=== PATIENT | male | born 1940 | race Caucasian/White ===

== ENCOUNTER → 2021-03-11 05:00 | Outpatient (REF) | payer OTHER, SELFPAY ==
[2021-03-11 09:43] LABS: Hemoglobin 14.9 g/dL (13.0-16.5); Mean Corp Hgb Conc 33.9 g/dL (32-36); Mean Corpuscular Hgb 30.2 pg (27.0-32.0); Mean Corpuscular Volume 89.1 fL (80-94); Mean Platelet Vol. 10.5 fl (6.2-12.0); Platelet Count 168 K/mm3 (150-450); RBC Distribution Width CV 13.2 % (11.6-14.6); Red Blood Count 4.94 M/mm3 (4.6-6.2); White Blood Count 9.1 K/mm3 (4.4-11.0)
[2021-03-11 10:03] LABS: ALB/GLOB Ratio 1.1 RATIO (0.9-2.4); AST(SGOT) 27 U/L (15-37); Alanine Aminotransfer ALT/SGPT 36 U/L (16-61); Albumin, Serum 3.5 g/dL (3.2-5.0); Alkaline Phosphatase 100 U/L (45-117); Anion Gap 9 (5-15); BUN 16 mg/dL (7-18); BUN/Creat Ratio 15.7 RATIO (10-20); Calcium,Total 8.8 mg/dL (8.5-10.1); Chloride 105 mmol/L (98-107); Cholesterol 153 mg/dL (200); Creatinine, Serum 1.02 mg/dL (0.70-1.30); EST Glomerular Filtration Rate 75 mL/min (>60); Est Glom Filt Rate - Afr Amer 91 mL/min (>60); Globulin 3.3 g/dL (2.2-4.2); Glucose 95 mg/dL (74-106); High Density Lipoprotein 56 mg/dL; Potassium 4.3 mmol/L (3.5-5.1); Protein, Total 6.8 g/dL (6.4-8.2); Sodium Level 140 mmol/L (136-145); Triglycerides 90 mg/dL; Very Low Density Lipoprotein 18 mg/dL (5-40)
== END ==
LOC: OLS.BROOKB 05:00
PROVIDERS: Visit Provider Family Medicine
DX: I10 Essential (primary) hypertension (principal); E78.5 Hyperlipidemia, unspecified
CPT/HCPCS: 36415; 80053; 80061; 85027

== ENCOUNTER 2021-04-21 10:00 | Outpatient (REF) | payer MEDICARE, SELFPAY ==
[2021-04-21 12:58] LABS: Bacteria 0 SEEN /hpf (None Seen); Mucous, Urine 0 SEEN /hpf (<or=2+); Red Blood Cells-Urine 0 SEEN /hpf (0-5); White Blood Cells 0 SEEN /hpf (0-5)
[2021-04-21 13:12] LABS: Color, Urine Yellow (Yellow); Glucose, Dipstick Normal (Normal); Ketone-Dipstick Negative (Negative); Leukocyte Esterase-Dipstick Negative /ul (Negative); Nitrite-Dipstick Negative (Negative); Occult Blood-Urine Negative /ul (Negative); Protein-Dipstick Negative (Negative); Specific Gravity, Urine 1.015 (1.002-1.030); Urine Bilirubin Dipstick Negative (Negative); Urine Clarity Clear (Clear); Urine Urobilinogen Normal (Normal)
[2021-04-21 13:17] LABS: Squamous Epithelial Cells - UA 0-5 SEEN /hpf (0-5)
== END 2021-04-21 23:59 | disposition home or self-care (01) ==
LOC: OLS.BROOKB 10:00
PROVIDERS: Visit Provider Registered Nurse
DX: N39.0 Urinary tract infection, site not specified (principal); R41.0 Disorientation, unspecified
CPT/HCPCS: 81001; 87086

== ENCOUNTER 2021-10-14 13:46 | Inpatient (IN) | payer MEDICARE, SELFPAY ==
[2021-10-14] VITALS (7 sets, daily range): BP systolic 124–137; BP diastolic 79–100; PULSE 68–90; RESP 14–20; TEMP 36.6–37.5; O2SAT 93–98; BMI 18.1; BMI 17.8
--- NOTE | 2021-10-14 14:21 | RAD_ITS ---
STUDY: X-RAY CHEST REASON FOR EXAM: Male, 81 years old. sob TECHNIQUE: Single AP portable view of the chest. COMPARISON: None. FINDINGS: The lungs are hyperinflated with cystic emphysematous changes. No visualized consolidation. The lungs are clear and expanded. There is no demonstrated pleural abnormality. Normal size heart. Normal mediastinum and keron. Normal visualized pulmonary arteries. There is atherosclerotic calcification of the aortic arch with tortuosity. There are diffuse degenerative changes of the visualized thoracic spine. Normal visualized ribs, clavicles, and shoulders. There is no demonstrated abnormality of the visualized soft tissue structures of the upper abdomen. RAD/Chest 1 View (Portable) IMPRESSION: COPD/emphysema Electronically Signed: Fortunato Deng MD at 15:11 EDT ,
--- NOTE | 2021-10-14 14:22 | EKG12_ITS ---
Test Reason : Alt loc Blood Pressure : / mmHG Vent. Rate : 081 BPM Atrial Rate : 081 BPM P-R Int : 134 ms QRS Dur : 090 ms QT Int : 406 ms P-R-T Axes : 061 076 057 degrees QTc Int : 471 ms Sinus rhythm with occasional Premature ventricular complexes Nonspecific ST abnormality Abnormal ECG Confirmed by IDALIA SHINE, TATYANA ([id number]), senior editor ANGEL CORTES ([id number]) on 10/17/2021 9:38:30 AM Referred By: Jackelin Confirmed By:TATYANA FRIEDMAN MD
--- NOTE | 2021-10-14 14:24 | EDS_ITS ---
HPI History of Present Illness Chief Complaint: Alt LOC Informant: spouse/S.O., EMS and SNF Narrative Narrative: Patient sent in from [facility] secondary to decreased level of consciousness as well as facial swelling. Per at bedside she received a phone call from the long term that this morning he woke up with swelling to his lips right greater than left and not wanting to eat and drink. They state that he was less responsive than normal. He does have baseline dementia. EMS told nursing staff that they were told he had not been eating and drinking well the last couple days. There was no reported fall or injury. No new medications as far as knows. [facility] Medical History (Updated 10/14/21 @ 15:[address] Pauline Benítez MD) Coronary artery disease Dementia High cholesterol Hypertension Irritable bowel syndrome Allergy/AdvReac Type Severity Reaction Status Date / Time bee venom protein (honey bee) Allergy NEEDS Verified 10/14/21 13:47 FOLLOW-UP morphine Allergy NEEDS Verified 10/14/21 13:47 FOLLOW-UP Social History Smoking Status: Never smoker ROS ROS ED Review of Systems ROS Unobtainable: due to mental condition EXAM Physical Exam Narrative Exam Narrative: Patient resting with eyes closed. Will moan to questions. Will follow simple commands such as opening his mouth for further exam. Const Vital Signs: 10/14/21 13:48 10/14/21 14:37 10/14/21 14:58 Temperature 98.1 F 97.8 F Temperature Source Temporal Axillary Pulse Rate 90 87 Respiratory Rate 14 19 H Respiratory Effort Normal Non-Labored Respiratory Pattern Normal Blood Pressure 128/100 H 124/86 H Blood Pressure Mean 109 98 Pulse Ox 98 96 Oxygen Delivery Method Room Air Room Air Positive cachectic General Appearance ED: cachectic Nutritional Appearance: cachectic HEENT Reports dry mucous membranes HEENT Narrative: Edema noted right side greater than left. No tongue edema appreciated. Mucous membranes are quite dry. Patient would not allow for a very detailed oral exam. Nursing staff did note a sore on the inner surface of his right lower lip. Mouth ED: Yes dry mucous membranes Mouth: dry mucous membranes Neck no lymphadenopathy Chest Wall inspection of chest normal and palpation of chest normal Resp normal respiratory effort and clear to auscultation bilaterally Cardio regular rate and regular rhythm GI non-tender Auscultation: hypoactive bowel sounds Palpation: soft Extremity normal to inspection Neuro Neuro Narrative: Will moan to questions and follow some simple commands. Skin Skin Narrative: Superficial abrasion to the left liao. MDM MDM MDM Narrative Medical decision making narrative: Patient sent for CT scan of the head and facial bones. Chest x-ray obtained. Lab work and urinalysis ordered. Lab Data Attestation: I reviewed the patient's lab results. Labs: Laboratory Results - last 24 hr 10/14/21 10/14/21 10/14/21 14:08 14:08 15:18 WBC 13.5 H RBC 5.57 Hgb 16.0 Hct 50.2 MCV 90.1 MCH 28.7 MCHC 31.9 L RDW Std Deviation 46.8 H RDW Coeff of Jeet 14.2 Plt Count 214 MPV 10.9 Immature Gran % (Auto) 0.500 Neut % (Auto) 75.3 H Lymph % (Auto) 13.8 L [place] % (Auto) 9.2 Eos % (Auto) 0.8 Baso % (Auto) 0.4 Absolute Neuts (auto) 10.1 H Absolute Lymphs (auto) 1.85 Nucleated RBC % 0 Sodium 158 H Potassium 3.7 Chloride 125 H Carbon Dioxide 27.0 Anion Gap 6 BUN 37 H Creatinine 1.16 Estim Creat Clear Calc 40.01 Est GFR (MDRD) Af Amer 78 Est GFR (MDRD) Non-Af 64 BUN/Creatinine Ratio 31.9 H Glucose 103 Calcium 9.3 Total Bilirubin 0.70 Direct Bilirubin 0.15 AST 46 H ALT 29 Alkaline Phosphatase 157 H Total Protein 7.6 Albumin 3.7 Globulin 3.9 Urine Color Yellow Urine Clarity Cloudy Urine pH 6.0 Ur Specific [place] 1.025 Urine Protein 30 H Urine Glucose (UA) Normal Urine Ketones 5 H Urine Occult Blood 25 H Urine Nitrite Negative Urine Bilirubin Negative Urine Urobilinogen Normal Ur Leukocyte Esterase 500 H Radiography Diagnostic Testing: Clinical Impression(s) from Imaging Studies Chest X-Ray 10/14/21 14:21 IMPRESSION: COPD/emphysema Electronically Signed: Fortunato Deng MD at 15:11 EDT , Brain CT 10/14/21 14:42 IMPRESSION: Chronic involutional changes of the brain. Electronically Signed: Jose Becerril MD at 15:07 EDT , Facial/Sinus 10/14/21 14:42 IMPRESSION: Diffuse soft tissue swelling overlying the mandible more prominent on the right side. Electronically Signed: Jose Becerril MD at 15:09 EDT , EKG Initial EKG: Attestation: I personally reviewed and interpreted this EKG as follows: Interpretation: Sinus Rhythm (Sinus at 81 with no acute ischemia. Occasional PVCs.) Treatment and Re-Evaluation Narrative: Lab work is reviewed. White count slightly elevated at 13.5. Chemistry studies significant for a sodium of 158 and a chloride of 125. Bicarb is 27. BUN is 37 and creatinine is 1.16. Urinalysis does reveal 500 leukocyte esterase. Only 5 ketones noted. Chest x-ray per my interpretation reveals no acute findings. Radiology interpretation is reviewed. Head CT is normal. CT of the facial bones reveal soft tissue swelling overlying the mandible on the right. No focal abscess noted. On repeat evaluation patient is more agitated after moving to radiology and back. We attempted multiple times to reassure him. He remains agitated and will receive a small dose of Ativan. Test results discussed with at bedside. Given the fact that nursing staff did note a wound on the inner surface of his lip and he has edema along his right mandible we will give him a dose of clindamycin. He was given a 500 cc IV fluid bolus at this time and is currently running at 150. I will discuss with hospitalist. Discharge Plan Triage Chief Complaint: Alt LOC ED Provider: Pauline Benítez Dx/Rx/DC Orders Clinical Impression: Hypernatremia, Infection of mouth Primary Care Provider: Jassi Rodriguez Referrals: Jassi Rodriguez MD [Primary Care Provider] -
[2021-10-14 14:34] LABS: Absolute Lymphocyte Count 1.85 X10^3/uL (0.83-4.51); Absolute Neutrophil Count 10.1 X10^3/uL (2.0-7.7); Basophil# 0.05 X10^3/uL; Basophil% 0.4 % (0-1); Eosinophil# 0.11 X10^3/uL; Eosinophils% 0.8 % (0-5); Hematocrit 50.2 % (40-54); Lymphocyte # 1.85 X10^3/ul (0.83-4.51); Lymphocyte % 13.8 % (19-41); Mean Corp Hgb Conc 31.9 g/dL (32-36); Mean Corpuscular Hgb 28.7 pg (27.0-32.0); Mean Corpuscular Volume 90.1 fL (80-94); Mean Platelet Vol. 10.9 fl (6.2-12.0); Monocyte# 1.24 X10^3/uL; Monocyte% 9.2 % (0-10); NRBC Flagged by Analyzer 0 % (0-5); Neutrophil # 10.13 X10^3/uL (2.7-7.7); Neutrophil % 75.3 % (47-70); Platelet Count 214 K/mm3 (150-450); RBC Distribution Width CV 14.2 % (11.6-14.6); RBC Distribution Width SD 46.8 fl (35.1-43.9); Red Blood Count 5.57 M/mm3 (4.6-6.2); White Blood Count 13.5 K/mm3 (4.4-11.0)
--- NOTE | 2021-10-14 14:42 | CT_ITS ---
STUDY: CT FACIAL BONES WITHOUT CONTRAST REASON FOR EXAM: Male, 81 years old. Facial swelling -- please include through mandible RADIATION DOSAGE (If Supplied By Facility): CTDIvol = ( 29.38 ) mGy, DLP = ( 613.57 ) mGycm TECHNIQUE: The patient was scanned in a multi detector CT scanner. Sagittal and coronal images were reconstructed. Individualized dose optimization techniques were used for this CT. COMPARISON: None. FINDINGS: Diffuse soft tissue swelling overlying the mandible more prominent on the right side. No mandibular fracture is seen. Normal orbital rivas and orbital contents. Normal nasal bones and anterior nasal spine. Normal facial bones. There is no demonstrated fracture. Normal visualized paranasal sinuses. CT/Sinus/Facial Bone IMPRESSION: Diffuse soft tissue swelling overlying the mandible more prominent on the right side. Electronically Signed: Jose Becerril MD at 15:09 EDT ,
--- NOTE | 2021-10-14 14:42 | CT_ITS ---
STUDY: CT BRAIN WITHOUT CONTRAST REASON FOR EXAM: Male, 81 years old. Altered LOC RADIATION DOSAGE (If Supplied By Facility): CTDIvol = ( 44.99 ) mGy, DLP = ( 863.60 ) mGycm TECHNIQUE: Transaxial CT imaging of the brain was performed without administration of intravenous contrast material. Individualized dose optimization techniques were used for this CT. COMPARISON: No relevant priors. FINDINGS: Normal soft tissue structures. Normal calvarium. There is moderate cerebral atrophy with widening of the extra-axial spaces and ventricular dilatation. There are areas of decreased attenuation within the white matter tracts of the supratentorial brain, consistent with microvascular disease changes. Normal basal ganglia and thalami. Normal brainstem. There is mild cerebellar atrophy. There is no intracranial hemorrhage. There are no findings of an acute ischemic infarction. Atherosclerotic calcification of the cavernous portions of the internal carotid arteries and bilateral vertebral arteries. Normal visualized paranasal sinuses. CT/Brain/Head without Contrast IMPRESSION: Chronic involutional changes of the brain. Electronically Signed: Jose Becerril MD at 15:07 EDT ,
[2021-10-14 14:50] LABS: AST(SGOT) 46 U/L (15-37); Alanine Aminotransfer ALT/SGPT 29 U/L (16-61); Albumin, Serum 3.7 g/dL (3.2-5.0); Alkaline Phosphatase 157 U/L (45-117); Anion Gap 6 (5-15); BUN 37 mg/dL (7-18); BUN/Creat Ratio 31.9 RATIO (10-20); Bilirubin, Direct 0.15 mg/dL (0.00-0.30); Calcium,Total 9.3 mg/dL (8.5-10.1); Chloride 125 mmol/L (98-107); Creatinine, Serum 1.16 mg/dL (0.70-1.30); EST Glomerular Filtration Rate 64 mL/min (>60); Est Glom Filt Rate - Afr Amer 78 mL/min (>60); Estimated Creatinine Clearance 40.01 ml/min; Globulin 3.9 g/dL (2.2-4.2); Glucose 103 mg/dL (74-106); Potassium 3.7 mmol/L (3.5-5.1); Protein, Total 7.6 g/dL (6.4-8.2); Sodium Level 158 mmol/L (136-145)
[2021-10-14] MEDS: 0.9% Normal Saline 1,000 ML 150 ML IV (15:17)
[2021-10-14 15:26] LABS: Mucous, Urine 0 SEEN /hpf (<or=2+)
[2021-10-14 15:32] LABS: Color, Urine Yellow (Yellow); Glucose, Dipstick Normal (Normal); Ketone-Dipstick 5 mg/dl (Negative); Leukocyte Esterase-Dipstick 500 /ul (Negative); Nitrite-Dipstick Negative (Negative); Occult Blood-Urine 25 /ul (Negative); Protein-Dipstick 30 mg/dl (Negative); Specific Gravity, Urine 1.025 (1.002-1.030); Urine Bilirubin Dipstick Negative (Negative); Urine Clarity Cloudy (Clear); Urine Urobilinogen Normal (Normal)
[2021-10-14 15:50] LABS: Bacteria 1+ /hpf (None Seen); Red Blood Cells-Urine 5-10 SEEN /hpf (0-5); Squamous Epithelial Cells - UA 0-5 SEEN /hpf (0-5); White Blood Cells >100 SEEN /hpf (0-5)
[2021-10-14] MEDS: LORazepam 2 MG/ML Syringe 0.5 MG IV (15:52)
--- NOTE | 2021-10-14 15:54 | NURSING ---
DR CONSTANTINO FOR DR JOSUE
--- NOTE | 2021-10-14 16:02 | HP.PCM.HOS_ITS ---
HPI - General General Date of Admission: 10/14/21 Date of Service: 10/14/21 Chief Complaint: Confusion, poor p.o. intake -over the last couple of days HPI Narrative AMAYA DANIEL, is a 81 M who presents with the above. Patient has history of dementia and is resident in a detention. He comes in with progressive confusion and poor p.o. intake. Patient was noted in the detention to have a right sided facial swelling. He has not eating well over the last 2 weeks. He seems to have a right lip and jaw swelling. Patient is a poor historian and I am unable to get any history from him. His is at the bedside. She is unable to give me up to date events. Blood pressure is 128/100, heart rate 90, respiratory 14, temperature 98.1 F, SPO2 is 98% on room air. WBC count is 13.5hemoglobin is 16.0, platelet count 214, sodium is 158, potassium 3.7, chloride 125, BUN 37, creatinine 1.16, LFTs unremarkable. UA is cloudy, leukocyte esterase 500, WBC count >100 Admitting chest x-ray shows COPD/emphysema. CT scan brain showed chronic involuntary changes. Facial/sinus CT showed diffuse soft tissue swelling overlying the mandible more prominent on the right side. [facility] Medical History Coronary artery disease Dementia High cholesterol Hypertension Irritable bowel syndrome Home Medications aspirin 81 mg tablet,delayed release 81 mg PO DAILY@0800 10/14/21 [History Last Taken Unknown] diltiazem HCl 180 mg capsule,extended release 24 hr 180 mg PO DAILY CAD 10/14/21 [History Last Taken Unknown] docusate sodium 100 mg capsule (Colace) 200 mg PO BID CONSTIPATION 10/14/21 [History Last Taken Unknown] magnesium oxide 800 mg PO DAILY 10/14/21 [History Last Taken Unknown] mirtazapine 15 mg tablet 15 mg PO QHS APPETITE 10/14/21 [History Last Taken Unknown] multivitamin with minerals 1 tab PO DAILY SUPPLEMENT 10/14/21 [History Last Taken Unknown] ranolazine 500 mg tablet,extended release,12 hr 500 mg PO BID ANGINA 10/14/21 [History Last Taken Unknown] sertraline 100 mg tablet 100 mg PO DAILY DEPRESSION 10/14/21 [History Last Taken Unknown] Allergy/AdvReac Type Severity Reaction Status Date / Time bee venom protein (honey bee) Allergy Laryngospas Verified 10/14/21 17:19 ms morphine Allergy Other Verified 10/14/21 17:19 Family History unable to obtain unable to obtain Surgical History unable to obtain unable to obtain Social History (Updated 10/14/21 @ 16:[address] Keri Hull MD) housing: detention Smoking Status: Never smoker substance use type: does not use Vital Signs Vital Signs Vital Signs: 10/14/21 13:48 10/14/21 14:37 10/14/21 14:58 Temperature 98.1 F 97.8 F Temperature Source Temporal Axillary Pulse Rate 90 87 Respiratory Rate 14 19 H Respiratory Effort Normal Non-Labored Respiratory Pattern Normal Blood Pressure 128/100 H 124/86 H Blood Pressure Mean 109 98 Pulse Ox 98 96 Oxygen Delivery Method Room Air Room Air 10/14/21 15:52 Temperature Temperature Source Pulse Rate 89 Respiratory Rate 18 Respiratory Effort Respiratory Pattern Blood Pressure 130/86 H Blood Pressure Mean 100 Pulse Ox 98 Oxygen Delivery Method Room Air Weight Weight: 55.7 kg Body Mass Index (BMI) 18.1 Physical Exam Narrative Physical exam: General: Alert, confused, slightly combative, not pale, appears very frail, cachectic HEENT: Atraumatic Oral: Dry Mucosa, severe dental caries, unable to fully examine oral exam Neck: Supple Lungs: Diminished to auscultation Cardiovascular: HS I+II, regular, no murmurs Abdomen: Bowel Sounds Present, Soft, Non Tender Extremities: No edema Skin: No rashes, No breakdown Neurological: Grossly intact Psych/Mental Status: Appropriate Results Lab / Micro Data Result Diagrams: 10/14/21 14:08 10/14/21 14:08 Labs: Laboratory Results - last 24 hr 10/14/21 14:08: WBC 13.5 H, RBC 5.57, Hgb 16.0, Hct 50.2, MCV 90.1, MCH 28.7, MCHC 31.9 L, RDW Std Deviation 46.8 H, RDW Coeff of Jeet 14.2, Plt Count 214, MPV 10.9, Immature Gran % (Auto) 0.500, Neut % (Auto) 75.3 H, Lymph % (Auto) 13.8 L, [place] % (Auto) 9.2, Eos % (Auto) 0.8, Baso % (Auto) 0.4, Absolute Neuts (auto) 10.1 H, Absolute Lymphs (auto) 1.85, Nucleated RBC % 0 10/14/21 14:08: Sodium 158 H, Potassium 3.7, Chloride 125 H, Carbon Dioxide 27.0, Anion Gap 6, BUN 37 H, Creatinine 1.16, Estim Creat Clear Calc 40.01, Est GFR (MDRD) Af Amer 78, Est GFR (MDRD) Non-Af 64, BUN/Creatinine Ratio 31.9 H, Glucose 103, Calcium 9.3, Total Bilirubin 0.70, Direct Bilirubin 0.15, AST 46 H, ALT 29, Alkaline Phosphatase 157 H, Total Protein 7.6, Albumin 3.7, Globulin 3.9 10/14/21 15:18: Urine Color Yellow, Urine Clarity Cloudy, Urine pH 6.0, Ur Specific [place] 1.025, Urine Protein 30 H, Urine Glucose (UA) Normal, Urine Ketones 5 H, Urine Occult Blood 25 H, Urine Nitrite Negative, Urine Bilirubin Negative, Urine Urobilinogen Normal, Ur Leukocyte Esterase 500 H, Urine RBC 5-10 SEEN, Urine WBC >100 SEEN, Ur Squamous Epith Cells 0-5 SEEN, Urine Bacteria 1+, Urine Mucus 0 SEEN Radiology Impression Chest X-Ray 10/14/21 14:21 IMPRESSION: COPD/emphysema Electronically Signed: Fortunato Deng MD at 15:11 EDT Reading Location ID and State: [facility] / [place] , Service support , Brain CT 10/14/21 14:42 IMPRESSION: Chronic involutional changes of the brain. Electronically Signed: Jose Becerril MD at 15:07 EDT Reading Location ID and State: [facility] / [place] , Service support , Facial/Sinus 10/14/21 14:42 IMPRESSION: Diffuse soft tissue swelling overlying the mandible more prominent on the right side. Electronically Signed: Jose Becerril MD at 15:09 EDT , Assessment & Plan Assessment/Plan (1) Hypernatremia: PLAN: Plan 1. Acute hyperactive delirium in a patient with dementia likely secondary to hypernatremia/poor p.o. intake Will put on Haldol as needed, continue treatment as below EKG in a.m. 2. Acute hypernatremia secondary dehydration, Na 158 Will start on d5W, repeat BMP q4h 3. Acute right mandibular swelling/probable infection/probable ulceration Unable to do a full exam CT scan showed diffuse soft tissue swelling overlying the mandible Started on IV clindamycin x1; continue with IV Unasyn 4. Severe protein calorie malnutrition, BMI 17.8, audio video technician consulted Will look out for refeeding syndrome as patient is started on supplements and food 5. Dementia with behavioral disturbances, 6. Hypertension/CAD, continue on Cardizem, Ranexa, aspirin 7. DVT prophylaxis? Lovenox SC daily 8. I discussed and explained in details the various types of CODE STATUS-full code, DNR CCA, DNR CC. Patient's chose DNR-CC Time spent discussing CODE STATUS 16 minutes Charges/Coding Visit Charges Inpatient E&M: 06796 Init Hosp L3 Procedures Hospitalists Procedures: 86281 Advncd Care Plan 30 Min
[2021-10-14] MEDS: Clindamycin 600 MG/50 ML BAG 100 MG IV (16:07)
--- NOTE | 2021-10-14 16:23 | NURSING ---
303 NUAMAH HYPERNATREMIA, LIP SWELLING
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
[2021-10-14] MEDS: Haloperidol Lactate 5 MG/ML Vial 2 MG IM (17:36)
[2021-10-14 18:34] LABS: Anion Gap 6 (5-15); BUN 34 mg/dL (7-18); BUN/Creat Ratio 31.5 RATIO (10-20); Chloride 129 mmol/L (98-107); Creatinine, Serum 1.08 mg/dL (0.70-1.30); EST Glomerular Filtration Rate 70 mL/min (>60); Est Glom Filt Rate - Afr Amer 85 mL/min (>60); Estimated Creatinine Clearance 42.17 ml/min; Glucose 104 mg/dL (74-106); Potassium 3.4 mmol/L (3.5-5.1); Sodium Level 160 mmol/L (136-145)
[2021-10-14] MEDS: Haloperidol Lactate 5 MG/ML Vial 4 MG IM (21:25)
[2021-10-14 21:48] LABS: Anion Gap 7 (5-15); BUN 33 mg/dL (7-18); BUN/Creat Ratio 26.6 RATIO (10-20); Calcium,Total 8.8 mg/dL (8.5-10.1); Chloride 127 mmol/L (98-107); Creatinine, Serum 1.24 mg/dL (0.70-1.30); EST Glomerular Filtration Rate 60 mL/min (>60); Est Glom Filt Rate - Afr Amer 72 mL/min (>60); Estimated Creatinine Clearance 36.73 ml/min; Glucose 129 mg/dL (74-106); Potassium 3.6 mmol/L (3.5-5.1); Sodium Level 159 mmol/L (136-145)
[2021-10-15 04:08] VITALS: BP 113/92; PULSE 67; RESP 18; TEMP 36.6; O2SAT 98
[2021-10-15] MEDS: Haloperidol Lactate 5 MG/ML Vial 2 MG IM ×5 (04:19→21:25)
[2021-10-15] MEDS: Enoxaparin 30 MG/0.3 ML Syringe SC (04:22)
[2021-10-15 07:28] LABS: Absolute Lymphocyte Count 1.98 X10^3/uL (0.83-4.51); Absolute Neutrophil Count 7.2 X10^3/uL (2.0-7.7); Basophil# 0.05 X10^3/uL; Basophil% 0.5 % (0-1); Eosinophil# 0.46 X10^3/uL; Eosinophils% 4.3 % (0-5); Hematocrit 43.3 % (40-54); Hemoglobin 13.8 g/dL (13.0-16.5); Lymphocyte # 1.98 X10^3/ul (0.83-4.51); Lymphocyte % 18.3 % (19-41); Mean Corp Hgb Conc 31.9 g/dL (32-36); Mean Corpuscular Hgb 28.6 pg (27.0-32.0); Mean Corpuscular Volume 89.8 fL (80-94); Monocyte# 1.09 X10^3/uL; Monocyte% 10.1 % (0-10); NRBC Flagged by Analyzer 0 % (0-5); Neutrophil # 7.18 X10^3/uL (2.7-7.7); Neutrophil % 66.4 % (47-70); Platelet Count 157 K/mm3 (150-450); RBC Distribution Width CV 14.1 % (11.6-14.6); RBC Distribution Width SD 46.2 fl (35.1-43.9); Red Blood Count 4.82 M/mm3 (4.6-6.2); White Blood Count 10.8 K/mm3 (4.4-11.0)
[2021-10-15 08:19] LABS: ALB/GLOB Ratio 0.9 RATIO (0.9-2.4); AST(SGOT) 58 U/L (15-37); Alanine Aminotransfer ALT/SGPT 28 U/L (16-61); Albumin, Serum 2.9 g/dL (3.2-5.0); Alkaline Phosphatase 128 U/L (45-117); Anion Gap 6 (5-15); BUN 30 mg/dL (7-18); BUN/Creat Ratio 33.1 RATIO (10-20); Calcium,Total 8.6 mg/dL (8.5-10.1); Chloride 123 mmol/L (98-107); Creatinine, Serum 0.91 mg/dL (0.70-1.30); EST Glomerular Filtration Rate 86 mL/min (>60); Est Glom Filt Rate - Afr Amer 103 mL/min (>60); Estimated Creatinine Clearance 50.05 ml/min; Globulin 3.3 g/dL (2.2-4.2); Glucose 114 mg/dL (74-106); Magnesium 2.6 mg/dL (1.6-2.6); Potassium 3.1 mmol/L (3.5-5.1); Protein, Total 6.2 g/dL (6.4-8.2); Sodium Level 155 mmol/L (136-145)
[2021-10-15 09:51] VITALS: BP 148/75; PULSE 63; RESP 18; TEMP 36.6; O2SAT 92
--- NOTE | 2021-10-15 10:41 | PCM.PN.HOSP ---
Subjective Subjective Follow-up on acute delirium/hypernatremia/poor p.o. intake: Patient was seen and examined in the company of his and grandson. Overnight, he has been agitated and required IM Haldol multiple times. EKG this morning shows QTC of 488. Patient remains confused, resistant to care. I discussed patient's overall plan of care with the . All questions answered to her satisfaction. Objective Data Objective Data Vital Signs: Vital Signs Temp Pulse Resp BP Pulse Ox O2 Del Method 97.9 F 63 18 148/75 H 92 Room Air 10/15/21 09:51 10/15/21 09:51 10/15/21 09:51 10/15/21 09:51 10/15/21 09:51 10/15/21 09:51 Oxygen Delivery Method Room Air Weight: 54.658 kg Body Mass Index (BMI) 17.8 Intake & Output: Intake and Output for Last 24 Hours 10/13/21 10/14/21 10/15/21 23:59 23:59 23:59 Intake Total 1665.33 / 1665.33 805.75 / 805.75 Balance 1665.33 / 1665.33 805.75 / 805.75 Medical Nutrition Assessment Dietitian: Malnutrition Criteria Met Start: 10/15/21 10:23 Freq: Status: Active Protocol: Document 10/15/21 10:24 ALEJANDRA (Rec: 10/15/21 10:24 [id number]) Nutrition Malnutrition Evidence of Malnutrition Exists Yes Malnutrition (moderate): Social/Behavioral/ Environmental Evidenced By Suboptimal Energy Intake ( Severe),Weight Loss (Severe), Physical Changes (Severe) Clinical Problem Chronic Disease or Condition Related Malnutrition Etiology (severe) related to dementia Signs/Symptoms as evidenced by PO intake <75% of estimated needs for 9 months, 33% weight loss in 9 months, and severe orbital fat loss Status Active Problem Recommendation Dietitian Recommendations/Changes ADAT to Regular diet with soft /easy to chew meats when medically able. 120mL Ensure Enlive 4x daily when diet advances. Lab / Micro Data Result Diagrams: 10/15/21 06:25 10/15/21 06:25 Labs: Laboratory Results - last 24 hr 10/14/21 14:08: WBC 13.5 H, RBC 5.57, Hgb 16.0, Hct 50.2, MCV 90.1, MCH 28.7, MCHC 31.9 L, RDW Std Deviation 46.8 H, RDW Coeff of Jeet 14.2, Plt Count 214, MPV 10.9, Immature Gran % (Auto) 0.500, Neut % (Auto) 75.3 H, Lymph % (Auto) 13.8 L, [place] % (Auto) 9.2, Eos % (Auto) 0.8, Baso % (Auto) 0.4, Absolute Neuts (auto) 10.1 H, Absolute Lymphs (auto) 1.85, Nucleated RBC % 0 10/14/21 14:08: Sodium 158 H, Potassium 3.7, Chloride 125 H, Carbon Dioxide 27.0, Anion Gap 6, BUN 37 H, Creatinine 1.16, Estim Creat Clear Calc 40.01, Est GFR (MDRD) Af Amer 78, Est GFR (MDRD) Non-Af 64, BUN/Creatinine Ratio 31.9 H, Glucose 103, Calcium 9.3, Total Bilirubin 0.70, Direct Bilirubin 0.15, AST 46 H, ALT 29, Alkaline Phosphatase 157 H, Total Protein 7.6, Albumin 3.7, Globulin 3.9 10/14/21 15:18: Urine Color Yellow, Urine Clarity Cloudy, Urine pH 6.0, Ur Specific [place] 1.025, Urine Protein 30 H, Urine Glucose (UA) Normal, Urine Ketones 5 H, Urine Occult Blood 25 H, Urine Nitrite Negative, Urine Bilirubin Negative, Urine Urobilinogen Normal, Ur Leukocyte Esterase 500 H, Urine RBC 5-10 SEEN, Urine WBC >100 SEEN, Ur Squamous Epith Cells 0-5 SEEN, Urine Bacteria 1+, Urine Mucus 0 SEEN 10/14/21 17:45: Sodium 160 H, Potassium 3.4 L, Chloride 129 H*, Carbon Dioxide 25.0, Anion Gap 6, BUN 34 H, Creatinine 1.08, Estim Creat Clear Calc 42.17, Est GFR (MDRD) Af Amer 85, Est GFR (MDRD) Non-Af 70, BUN/Creatinine Ratio 31.5 H, Glucose 104, Calcium 9.0 10/14/21 21:00: Sodium 159 H, Potassium 3.6, Chloride 127 H*, Carbon Dioxide 25.0, Anion Gap 7, BUN 33 H, Creatinine 1.24, Estim Creat Clear Calc 36.73, Est GFR (MDRD) Af Amer 72, Est GFR (MDRD) Non-Af 60, BUN/Creatinine Ratio 26.6 H, Glucose 129 H, Calcium 8.8 10/15/21 06:25: WBC 10.8, RBC 4.82, Hgb 13.8, Hct 43.3, MCV 89.8, MCH 28.6, MCHC 31.9 L, RDW Std Deviation 46.2 H, RDW Coeff of Jeet 14.1, Plt Count 157, MPV 11.0, Immature Gran % (Auto) 0.400, Neut % (Auto) 66.4, Lymph % (Auto) 18.3 L, [place] % (Auto) 10.1 H, Eos % (Auto) 4.3, Baso % (Auto) 0.5, Absolute Neuts (auto) 7.2, Absolute Lymphs (auto) 1.98, Nucleated RBC % 0 10/15/21 06:25: Sodium 155 H, Potassium 3.1 L, Chloride 123 H, Carbon Dioxide 26.0, Anion Gap 6, BUN 30 H, Creatinine 0.91, Estim Creat Clear Calc 50.05, Est GFR (MDRD) Af Amer 103, Est GFR (MDRD) Non-Af 86, BUN/Creatinine Ratio 33.1 H, Glucose 114 H, Calcium 8.6, Magnesium 2.6, Total Bilirubin 0.60, AST 58 H, ALT 28, Alkaline Phosphatase 128 H, Total Protein 6.2 L, Albumin 2.9 L, Globulin 3.3, Albumin/Globulin Ratio 0.9 10/15/21 06:25: Phosphorus 3.0 Radiography Diagnostic Testing: Radiology Impression Chest X-Ray 10/14/21 14:21 IMPRESSION: COPD/emphysema Electronically Signed: Fortunato Deng MD at 15:11 EDT , Brain CT 10/14/21 14:42 IMPRESSION: Chronic involutional changes of the brain. Electronically Signed: Jose Becerril MD at 15:07 EDT , Facial/Sinus 10/14/21 14:42 IMPRESSION: Diffuse soft tissue swelling overlying the mandible more prominent on the right side. Electronically Signed: Jose Becerril MD at 15:09 EDT , Physical Exam Narrative Physical exam: General: Alert, confused, slightly combative, not pale, appears very frail, cachectic HEENT: Atraumatic Oral: Dry Mucosa, severe dental caries, greenish-yellowish exudative lesions all over the hard palate and tongue Neck: Supple Lungs: Diminished to auscultation Cardiovascular: HS I+II, regular, no murmurs Abdomen: Bowel Sounds Present, Soft, Non Tender Extremities: No edema Skin: No rashes, No breakdown Neurological: Grossly intact Psych/Mental Status: Appropriate Assessment & Plan Assessment/Plan (1) Hypernatremia: PLAN: Plan 1. Acute hyperactive delirium in a patient with dementia likely secondary to hypernatremia/poor p.o. intake Remains hyperactive, sitter at the bedside, Haldol as needed EKG showed QTC 488 We will try to control pain, continue treatment for hypernatremia Continue to monitor 2. Acute hypernatremia secondary dehydration/very poor p.o. intake, very mildly improved, Sodium is 155, peaked at 160 yesterday Nephrology consulted Continue on D5W, repeat BMP in a.m. 3. Acute right mandibular swelling/stomatitis/mucositis CT scan showed diffuse soft tissue swelling overlying the mandible Continue with IV Unasyn, BMX solution, Roxanol, scheduled Tylenol for pain control Follow-up on oral surgery recommendations 4. Hypokalemia, replace, recheck in a.m. 5. Severe protein calorie malnutrition, BMI 17.8, polishing machine operator helper consulted Phosp 3.0, potassium 3.1 Will look out for refeeding syndrome when patient begins to feel better and eat 6. Dementia with behavioral disturbances, on haldol prn 7. Hypertension/CAD, continue on Cardizem, Ranexa, aspirin 8. DVT prophylaxis? Lovenox SC daily Charges/Coding Visit Charges Inpatient E&M: 10342 Subs Hosp L2
--- NOTE | 2021-10-15 11:39 | CASEMGMT ---
Discharge Polysom Tech Sindy Gastelum/Carlos Making Machine Catcher faxed over update on patient to Angelique. Sindy Ott Discharge Polysom Tech
--- NOTE | 2021-10-15 11:40 | EKG12_ITS ---
Test Reason : MEDICATION CHECK Blood Pressure : / mmHG Vent. Rate : 066 BPM Atrial Rate : 267 BPM P-R Int : 000 ms QRS Dur : 086 ms QT Int : 466 ms P-R-T Axes : 000 079 062 degrees QTc Int : 488 ms Somatic/Motion artifact Sinus vs Ectopic Atrial Rhythm Nonspecific ST abnormality Abnormal ECG Confirmed by IDALIA SHINE, TATYANA ([id number]), assignment editor ANGEL CORTES ([id number]) on 10/19/2021 10:40:37 AM Referred By: DOUGIE Confirmed By:TATYANA FRIEDMAN MD
[2021-10-15] MEDS: Potassium Chloride 10mEq/100mL 10 MEQ/100 ML IV.SOLN. 100 MEQ IV BOLUS ×4 (11:57→16:49)
[2021-10-15] MEDS: Acetaminophen 650 MG Suppository RC ×2 (12:04→21:15)
--- NOTE | 2021-10-15 12:33 | CASEMGMT ---
Social Work Pt is here from [place]. SW spoke w/ in room, confirmed pt will return to [place] at discharge. Pt is there private pay, intermediate level of care. SW called [facility], confirmed with Carmen that he is [facility] and can return when ready. SW will continue to follow. YASMIN Ames
--- NOTE | 2021-10-15 13:00 | CON.PCM.RE_ITS ---
Assessment & Plan Assessment/Plan (1) Hypernatremia: (2) Infection of mouth: (3) Dementia: PLAN: Plan Patient was brought to the emergency room for further evaluation and treatment of mouth swelling and confusion. Patient does have a history of dementia and has been residing at an [facility]. CT of brain no acute process. Patient did have a CT scan facial bones showed diffuse soft tissue swelling overlying the mandible more prominent on right side, he has been started on IV antibiotics clindamycin and Unasyn. Oral surgery has been consulted. UA positive for leukocyte Estrace, urine culture pending. Patient has history of hypertension, current blood pressures acceptable and patient not on any BP meds at this time. We are consulted for hypernatremia. Sodium 158 in the emergency room, sodium peaked at 160 last evening and currently sodium 155.? Patient has normal baseline sodium of 140 in March 2021. Hypernatremia is likely secondary to free water deficit. Patient is possibly at least 3L free water deficient; per physical exam patient is hypovolemic. Reviewed chest x-ray, chest x-ray is irwin r. He is on D5 W at 125 mL/hour and recommend to continue IV fluids as ordered especially since patient is n.p.o. and is not able to take anything by mouth at this time. Once patient is able to take food/drink recommend for him to increase free water intake however, given history of dementia he likely will need assistance and reminders on eating and drinking fluids. Renal function is preserved, creatinine 0.91 mg/dL. Potassium is 3.1 and likely from poor oral intake, replacement has been ordered. Discussed plan with patient's who is at bedside. Questions answered. Labs ordered for am. Patient's code status is DNRCC. Further orders forthcoming as hospitalization evolves, thank you for allowing us to participate in the care of Mr. Daniel HPI Consult Data Date of Consult: 10/15/21 HPI Narrative HPI Narrative: AMAYA DANIEL, is a 81 M who currently resides in [facility] who was brought to the emergency room for evaluation of altered mental status changes, facial swelling and not eating. Patient has a past medical history significant for dementia and hypertension. We were consulted for hypernatremia. Patient is confused therefore information gathered from his who is at bedside. Per patient's patient has been in [place] since July of this year. states that appetite as far she knows has been fair up until about Tuesday. She is unaware of any recent nausea, vomiting or diarrhea. does endorse weight loss. Patient's sodium was 158 in the emergency room, his sodium peaked at 160 last evening. His sodium is now 155. Patient has normal baseline sodium of 140 in March 2021. [facility] Medical History (Updated 10/15/21 @ 13:05 by HAMILTON Olsen) Coronary artery disease Dementia High cholesterol Hypertension Irritable bowel syndrome Home Medications aspirin 81 mg tablet,delayed release 81 mg PO DAILY@0800 10/14/21 [History Last Taken Unknown] diltiazem HCl 180 mg capsule,extended release 24 hr 180 mg PO DAILY CAD 10/14/21 [History Last Taken Unknown] docusate sodium 100 mg capsule (Colace) 200 mg PO BID CONSTIPATION 10/14/21 [History Last Taken Unknown] magnesium oxide 800 mg PO DAILY 10/14/21 [History Last Taken Unknown] mirtazapine 15 mg tablet 15 mg PO QHS APPETITE 10/14/21 [History Last Taken Unknown] multivitamin with minerals 1 tab PO DAILY SUPPLEMENT 10/14/21 [History Last Taken Unknown] ranolazine 500 mg tablet,extended release,12 hr 500 mg PO BID ANGINA 10/14/21 [History Last Taken Unknown] sertraline 100 mg tablet 100 mg PO DAILY DEPRESSION 10/14/21 [History Last Taken Unknown] Allergy/AdvReac Type Severity Reaction Status Date / Time bee venom protein (honey bee) Allergy Laryngospas Verified 10/14/21 17:19 ms morphine Allergy Other Verified 10/14/21 17:19 Family History unable to obtain Surgical History unable to obtain Social History (Updated 10/14/21 @ 16:[address] Keri Hull MD) housing: intermediate Smoking Status: Never smoker substance use type: does not use ROS ROS Narrative Unable to obtain, as per past medical history and HPI Physical Exam Narrative Const: Alert or oriented, does not follow commands. In no apparent distress HEENT: Head is normocephalic, atraumatic. PERRLA. Oral mucosa dry, lips dry Cardio: S1, S2, RRR Respiratory: Lung sounds clear anteriorly and posteriorly, no wheezes, rhonchi, rales noted Extremities: No edema Medical Records Data Medical Nutrition Assessment Dietitian: Malnutrition Criteria Met Start: 10/15/21 10:23 Freq: Status: Active Protocol: Document 10/15/21 10:24 LO (Rec: 10/15/21 10:24 LO [id number]) Nutrition Malnutrition Evidence of Malnutrition Exists Yes Malnutrition (severe): Social/Behavioral/ Environmental Evidenced By Suboptimal Energy Intake ( Severe),Weight Loss (Severe), Physical Changes (Severe) Clinical Problem Chronic Disease or Condition Related Malnutrition Etiology (severe) related to dementia Signs/Symptoms as evidenced by PO intake <75% of estimated needs for 9 months, 33% weight loss in 9 months, and severe orbital fat loss Status Active Problem Recommendation Dietitian Recommendations/Changes ADAT to Regular diet with soft /easy to chew meats when medically able. 120mL Ensure Enlive 4x daily when diet advances. Lab / Micro Data Result Diagrams: 10/15/21 06:25 10/15/21 06:25 Labs: Laboratory Results - last 24 hr 10/14/21 14:08: WBC 13.5 H, RBC 5.57, Hgb 16.0, Hct 50.2, MCV 90.1, MCH 28.7, MCHC 31.9 L, RDW Std Deviation 46.8 H, RDW Coeff of Jeet 14.2, Plt Count 214, MPV 10.9, Immature Gran % (Auto) 0.500, Neut % (Auto) 75.3 H, Lymph % (Auto) 13.8 L, [place] % (Auto) 9.2, Eos % (Auto) 0.8, Baso % (Auto) 0.4, Absolute Neuts (auto) 10.1 H, Absolute Lymphs (auto) 1.85, Nucleated RBC % 0 10/14/21 14:08: Sodium 158 H, Potassium 3.7, Chloride 125 H, Carbon Dioxide 27.0, Anion Gap 6, BUN 37 H, Creatinine 1.16, Estim Creat Clear Calc 40.01, Est GFR (MDRD) Af Amer 78, Est GFR (MDRD) Non-Af 64, BUN/Creatinine Ratio 31.9 H, Glucose 103, Calcium 9.3, Total Bilirubin 0.70, Direct Bilirubin 0.15, AST 46 H, ALT 29, Alkaline Phosphatase 157 H, Total Protein 7.6, Albumin 3.7, Globulin 3.9 10/14/21 15:18: Urine Color Yellow, Urine Clarity Cloudy, Urine pH 6.0, Ur Sp ecific [place] 1.025, Urine Protein 30 H, Urine Glucose (UA) Normal, Urine Ketones 5 H, Urine Occult Blood 25 H, Urine Nitrite Negative, Urine Bilirubin Negative, Urine Urobilinogen Normal, Ur Leukocyte Esterase 500 H, Urine RBC 5-10 SEEN, Urine WBC >100 SEEN, Ur Squamous Epith Cells 0-5 SEEN, Urine Bacteria 1+, Urine Mucus 0 SEEN 10/14/21 17:45: Sodium 160 H, Potassium 3.4 L, Chloride 129 H*, Carbon Dioxide 25.0, Anion Gap 6, BUN 34 H, Creatinine 1.08, Estim Creat Clear Calc 42.17, Est GFR (MDRD) Af Amer 85, Est GFR (MDRD) Non-Af 70, BUN/Creatinine Ratio 31.5 H, Glucose 104, Calcium 9.0 10/14/21 21:00: Sodium 159 H, Potassium 3.6, Chloride 127 H*, Carbon Dioxide 25.0, Anion Gap 7, BUN 33 H, Creatinine 1.24, Estim Creat Clear Calc 36.73, Est GFR (MDRD) Af Amer 72, Est GFR (MDRD) Non-Af 60, BUN/Creatinine Ratio 26.6 H, Glucose 129 H, Calcium 8.8 10/15/21 06:25: WBC 10.8, RBC 4.82, Hgb 13.8, Hct 43.3, MCV 89.8, MCH 28.6, MCHC 31.9 L, RDW Std Deviation 46.2 H, RDW Coeff of Jeet 14.1, Plt Count 157, MPV 11.0, Immature Gran % (Auto) 0.400, Neut % (Auto) 66.4, Lymph % (Auto) 18.3 L, [place] % (Auto) 10.1 H, Eos % (Auto) 4.3, Baso % (Auto) 0.5, Absolute Neuts (auto) 7.2, Absolute Lymphs (auto) 1.98, Nucleated RBC % 0 10/15/21 06:25: Sodium 155 H, Potassium 3.1 L, Chloride 123 H, Carbon Dioxide 26.0, Anion Gap 6, BUN 30 H, Creatinine 0.91, Estim Creat Clear Calc 50.05, Est GFR (MDRD) Af Amer 103, Est GFR (MDRD) Non-Af 86, BUN/Creatinine Ratio 33.1 H, Glucose 114 H, Calcium 8.6, Magnesium 2.6, Total Bilirubin 0.60, AST 58 H, ALT 28, Alkaline Phosphatase 128 H, Total Protein 6.2 L, Albumin 2.9 L, Globulin 3.3, Albumin/Globulin Ratio 0.9 10/15/21 06:25: Phosphorus 3.0 Radiology Impression Chest X-Ray 10/14/21 14:21 IMPRESSION: COPD/emphysema Electronically Signed: Fortunato Deng MD at 15:11 EDT , Brain CT 10/14/21 14:42 IMPRESSION: Chronic involutional changes of the brain. Electronically Signed: Jose Becerril MD at 15:07 EDT , Facial/Sinus 10/14/21 14:42 IMPRESSION: Diffuse soft tissue swelling overlying the mandible more prominent on the right side. Electronically Signed: Jose Becerril MD at 15:09 EDT ,
[2021-10-15 14:51] VITALS: BP 133/70; PULSE 58; RESP 18; TEMP 36.6; O2SAT 97
[2021-10-15] MEDS: morphine (oral solution) 10MG/0.5ML Syringe 5 MG SL/PO ×2 (15:43→17:50)
[2021-10-15] MEDS: BMX LIQUID 180 ML PO (15:44)
--- NOTE | 2021-10-15 15:59 | PCM.CONS.B ---
Consult Date of Consult: 10/15/21 Reason for Consult Swollen lip and oral mucosa. On inspection today the patient is only moderately cooperative. A detailed oral exam is limited but I did notice very reddened and irritated tissue throughout the oral cavity much lie an auto-immune phenomenom. I did not appreciate any dental infection. 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
[2021-10-15 21:01] VITALS: BP 125/90; PULSE 83; RESP 18; TEMP 36.4; O2SAT 92
[2021-10-16 04:15] VITALS: BP 126/81; PULSE 57; RESP 18; TEMP 36.4; O2SAT 92
[2021-10-16] MEDS: Enoxaparin 30 MG/0.3 ML Syringe SC (05:35)
[2021-10-16] MEDS: Acetaminophen 650 MG Suppository RC ×3 (05:36→21:30)
[2021-10-16 05:43] LABS: Absolute Lymphocyte Count 2.47 X10^3/uL (0.83-4.51); Absolute Neutrophil Count 5.4 X10^3/uL (2.0-7.7); Basophil# 0.05 X10^3/uL; Basophil% 0.5 % (0-1); Eosinophil# 0.57 X10^3/uL; Eosinophils% 6.1 % (0-5); Hematocrit 43.4 % (40-54); Lymphocyte # 2.47 X10^3/ul (0.83-4.51); Lymphocyte % 26.5 % (19-41); Mean Corp Hgb Conc 32.3 g/dL (32-36); Mean Corpuscular Hgb 28.6 pg (27.0-32.0); Mean Corpuscular Volume 88.8 fL (80-94); Monocyte# 0.84 X10^3/uL; NRBC Flagged by Analyzer 0 % (0-5); Neutrophil # 5.37 X10^3/uL (2.7-7.7); Neutrophil % 57.6 % (47-70); Platelet Count 153 K/mm3 (150-450); RBC Distribution Width CV 13.7 % (11.6-14.6); RBC Distribution Width SD 44.5 fl (35.1-43.9); Red Blood Count 4.89 M/mm3 (4.6-6.2); White Blood Count 9.3 K/mm3 (4.4-11.0)
[2021-10-16 06:46] LABS: ALB/GLOB Ratio 0.9 RATIO (0.9-2.4); AST(SGOT) 80 U/L (15-37); Alanine Aminotransfer ALT/SGPT 38 U/L (16-61); Albumin, Serum 2.9 g/dL (3.2-5.0); Alkaline Phosphatase 126 U/L (45-117); Anion Gap 5 (5-15); BUN 16 mg/dL (7-18); BUN/Creat Ratio 21.4 RATIO (10-20); Calcium,Total 8.4 mg/dL (8.5-10.1); Chloride 113 mmol/L (98-107); Creatinine, Serum 0.75 mg/dL (0.70-1.30); EST Glomerular Filtration Rate 107 mL/min (>60); Est Glom Filt Rate - Afr Amer 129 mL/min (>60); Estimated Creatinine Clearance 45.25 ml/min; Globulin 3.2 g/dL (2.2-4.2); Glucose 82 mg/dL (74-106); Potassium 3.5 mmol/L (3.5-5.1); Protein, Total 6.1 g/dL (6.4-8.2); Sodium Level 146 mmol/L (136-145)
[2021-10-16] MEDS: 0.9% Saline Lock 10 ML Syringe IV ×2 (07:50→21:32)
[2021-10-16 08:27] VITALS: BP 112/72; PULSE 56; RESP 16; TEMP 36.6; O2SAT 92
--- NOTE | 2021-10-16 09:56 | PN.HOSP_ITS ---
Subjective Subjective Follow-up on acute delirium/hypernatremia/poor p.o. intake: Patient was seen and examined. Patient is less agitated. He looks improved and resting. His is at the bedside. His serum sodium is also improved to 146. Objective Data Objective Data Vital Signs: Vital Signs Temp Pulse Resp BP Pulse Ox O2 Del Method 97.8 F 56 L 16 112/72 92 Room Air 10/16/21 08:27 10/16/21 08:27 10/16/21 08:27 10/16/21 08:27 10/16/21 08:27 10/16/21 08:27 Oxygen Delivery Method Room Air Weight: 54.3 kg Body Mass Index (BMI) 17.8 Intake & Output: Intake and Output for Last 24 Hours 10/14/21 10/15/21 10/16/21 23:59 23:59 23:59 Intake Total 1665.33 / 1665.33 3415.17 / 3415.17 1112.00 / 1112.00 Balance 1665.33 / 1665.33 3415.17 / 3415.17 1112.00 / 1112.00 Medical Nutrition Assessment Dietitian: Malnutrition Criteria Met Start: 10/15/21 10:23 Freq: Status: Active Protocol: Document 10/15/21 10:24 LO (Rec: 10/15/21 10:24 LO [id number]) Nutrition Malnutrition Evidence of Malnutrition Exists Yes Malnutrition (severe): Social/Behavioral/ Environmental Evidenced By Suboptimal Energy Intake ( Severe),Weight Loss (Severe), Physical Changes (Severe) Clinical Problem Chronic Disease or Condition Related Malnutrition Etiology (severe) related to dementia Signs/Symptoms as evidenced by PO intake <75% of estimated needs for 9 months, 33% weight loss in 9 months, and severe orbital fat loss Status Active Problem Recommendation Dietitian Recommendations/Changes ADAT to Regular diet with soft /easy to chew meats when medically able. 120mL Ensure Enlive 4x daily when diet advances. Lab / Micro Data Result Diagrams: 10/16/21 04:09 10/16/21 04:09 Labs: Laboratory Results - last 24 hr 10/16/21 04:09: WBC 9.3, RBC 4.89, Hgb 14.0, Hct 43.4, MCV 88.8, MCH 28.6, MCHC 32.3, RDW Std Deviation 44.5 H, RDW Coeff of Jeet 13.7, Plt Count 153, MPV 11.0, Immature Gran % (Auto) 0.300, Neut % (Auto) 57.6, Lymph % (Auto) 26.5, [place] % (Auto) 9.0, Eos % (Auto) 6.1 H, Baso % (Auto) 0.5, Absolute Neuts (auto) 5.4, Absolute Lymphs (auto) 2.47, Nucleated RBC % 0 10/16/21 04:09: Sodium 146 H, Potassium 3.5, Chloride 113 H, Carbon Dioxide 28.0, Anion Gap 5, BUN 16, Creatinine 0.75, Estim Creat Clear Calc 45.25, Est GFR (MDRD) Af Amer 129, Est GFR (MDRD) Non-Af 107, BUN/Creatinine Ratio 21.4 H, Glucose 82, Calcium 8.4 L, Total Bilirubin 0.60, AST 80 H, ALT 38, Alkaline Phos phatase 126 H, Total Protein 6.1 L, Albumin 2.9 L, Globulin 3.2, Albumin/Globulin Ratio 0.9 Physical Exam Narrative Physical exam: General: Alert, remains confused, not pale, appears very frail, cachectic HEENT: Atraumatic Oral: Dry Mucosa, severe dental caries, slightly reddish hard palate and tongue, greenish exudative lesions have all been removed Neck: Supple Lungs: Diminished to auscultation Cardiovascular: HS I+II, regular, no murmurs Abdomen: Bowel Sounds Present, Soft, Non Tender Extremities: No edema Skin: No rashes, No breakdown Neurological: Grossly intact Psych/Mental Status: Appropriate Assessment & Plan Assessment/Plan (1) Hypernatremia: PLAN: Plan 1. Acute hyperactive delirium in a patient with dementia likely secondary to hypernatremia/poor p.o. intake Improved, patient has not had a sitter at the bedside overnight Will DC Haldol, may start Seroquel if needed for agitation Continue to monitor 2. Acute hypernatremia secondary dehydration/very poor p.o. intake, very mildly improved, Sodium is 146, improved from 155 Nephrology consulted. Continue on D5W, repeat BMP in a.m. 3. Acute right mandibular swelling/stomatitis/mucositis CT scan showed diffuse soft tissue swelling overlying the mandible Continue with IV Unasyn, BMX solution, Roxanol, scheduled Tylenol for pain control Neurosurgery consulted, appreciate recommendation, started on IV Solu-Medrol 4. Hypokalemia, replaced 5. Severe protein calorie malnutrition, BMI 17.8, reversing mill roller consulted 6. Dementia with behavioral disturbances, on haldol prn 7. Hypertension/CAD, home Cardizem, Ranexa and aspirin on hold for now 8. DVT prophylaxis? Lovenox SC daily Charges/Coding Visit Charges Inpatient E&M: 30416 Subs Hosp L2
--- NOTE | 2021-10-16 11:52 | CASEMGMT ---
Social Work Per physician, pt not ready for discharge today but possibly tomorrow. Covid test will be needed prior to discharge. Phone call to [facility] and updated that pt may be discharged tomorrow. Plan: [facility], intermediate level of care, when medically ready. JENNIFER Patricia
--- NOTE | 2021-10-16 13:21 | PCM.PN.REN ---
Subjective Subjective Resting quietly. No overnight events. No acute distress. at bedside and states patient's mentation improved today. Objective Data Objective Data Vital Signs: Vital Signs Temp Pulse Resp BP Pulse Ox O2 Del Method 97.8 F 56 L 16 112/72 92 Room Air 10/16/21 08:27 10/16/21 08:27 10/16/21 08:27 10/16/21 08:27 10/16/21 08:27 10/16/21 08:27 Oxygen Delivery Method Room Air Weight: 54.3 kg Body Mass Index (BMI) 17.8 Intake & Output: Intake and Output for Last 24 Hours 10/14/21 10/15/21 10/16/21 23:59 23:59 23:59 Intake Total 1665.33 / 1665.33 3415.17 / 3415.17 1112.00 / 1112.00 Balance 1665.33 / 1665.33 3415.17 / 3415.17 1112.00 / 1112.00 Medical Nutrition Assessment Dietitian: Malnutrition Criteria Met Start: 10/15/21 10:23 Freq: Status: Active Protocol: Document 10/15/21 10:24 LO (Rec: 10/15/21 10:24 LO [id number]) Nutrition Malnutrition Evidence of Malnutrition Exists Yes Malnutrition (severe): Social/Behavioral/ Environmental Evidenced By Suboptimal Energy Intake ( Severe),Weight Loss (Severe), Physical Changes (Severe) Clinical Problem Chronic Disease or Condition Related Malnutrition Etiology (severe) related to dementia Signs/Symptoms as evidenced by PO intake <75% of estimated needs for 9 months, 33% weight loss in 9 months, and severe orbital fat loss Status Active Problem Recommendation Dietitian Recommendations/Changes ADAT to Regular diet with soft /easy to chew meats when medically able. 120mL Ensure Enlive 4x daily when diet advances. Lab / Micro Data Result Diagrams: 10/16/21 04:09 10/16/21 04:09 Labs: Laboratory Results - last 24 hr 10/16/21 04:09: WBC 9.3, RBC 4.89, Hgb 14.0, Hct 43.4, MCV 88.8, MCH 28.6, MCHC 32.3, RDW Std Deviation 44.5 H, RDW Coeff of Jeet 13.7, Plt Count 153, MPV 11.0, Immature Gran % (Auto) 0.300, Neut % (Auto) 57.6, Lymph % (Auto) 26.5, [place] % (Auto) 9.0, Eos % (Auto) 6.1 H, Baso % (Auto) 0.5, Absolute Neuts (auto) 5.4, Absolute Lymphs (auto) 2.47, Nucleated RBC % 0 10/16/21 04:09: Sodium 146 H, Potassium 3.5, Chloride 113 H, Carbon Dioxide 28.0, Anion Gap 5, BUN 16, Creatinine 0.75, Estim Creat Clear Calc 45.25, Est GFR (MDRD) Af Amer 129, Est GFR (MDRD) Non-Af 107, BUN/Creatinine Ratio 21.4 H, Glucose 82, Calcium 8.4 L, Total Bilirubin 0.60, AST 80 H, ALT 38, Alkaline Phosphatase 126 H, Total Protein 6.1 L, Albumin 2.9 L, Globulin 3.2, Albumin/Globulin Ratio 0.9 Physical Exam Narrative Const: Not alert or oriented, does not follow commands. In no apparent distress HEENT: Oral mucosa dry, lips dry Cardio: S1, S2, RRR Respiratory: Lung sounds clear anteriorly and posteriorly, no wheezes, rhonchi, rales noted Extremities: No edema Assessment & Plan Assessment/Plan (1) Hypernatremia: (2) Infection of mouth: (3) Dementia: PLAN: Plan -Hypernatremia: from poor oral intake and lack of free water. Improving with IVF, D5W. Sodium peaked 160 and is now 146. Patient has normal baseline sodium of 140 in March 2021. Can continue on D5W for another day. Patient was n.p.o. for breakfast but now is able to eat, diet ordered and he is a total feed. Discussed with importance of giving patient free water with each meal -History of dementia and has been residing at an [facility]. CT of brain no acute process. -CT scan facial bones showed diffuse soft tissue swelling overlying the mandible more prominent on right side, on IV antibiotics clindamycin and Unasyn. Oral surgery has been consulted, no dental infection and probable auto-immune patient now on steroids. -UA positive for leukocyte Estrace, urine culture pending. - [facility] -labs ordered for am
[2021-10-16 14:31] VITALS: BP 109/85; PULSE 100; RESP 16; TEMP 37.3; O2SAT 97
[2021-10-16 19:52] VITALS: BP 116/66; PULSE 76; RESP 18; TEMP 36.7; O2SAT 96
[2021-10-17 02:44] VITALS: BP 136/81; PULSE 97; RESP 18; TEMP 37.3; O2SAT 95
[2021-10-17] MEDS: Acetaminophen 650 MG Suppository RC (05:33)
[2021-10-17] MEDS: Enoxaparin 40 MG/0.4 ML Syringe SC (05:33)
[2021-10-17 06:07] LABS: Absolute Neutrophil Count 8.2 X10^3/uL (2.0-7.7); Basophil# 0.02 X10^3/uL; Basophil% 0.2 % (0-1); Eosinophil# 0.03 X10^3/uL; Eosinophils% 0.3 % (0-5); Hematocrit 38.5 % (40-54); Hemoglobin 13.3 g/dL (13.0-16.5); Lymphocyte % 14.9 % (19-41); Mean Corp Hgb Conc 34.5 g/dL (32-36); Mean Corpuscular Hgb 29.2 pg (27.0-32.0); Mean Corpuscular Volume 84.6 fL (80-94); Mean Platelet Vol. 11.3 fl (6.2-12.0); Monocyte# 0.85 X10^3/uL; Monocyte% 7.9 % (0-10); NRBC Flagged by Analyzer 0 % (0-5); Neutrophil # 8.21 X10^3/uL (2.7-7.7); Neutrophil % 76.3 % (47-70); Platelet Count 155 K/mm3 (150-450); RBC Distribution Width CV 13.2 % (11.6-14.6); RBC Distribution Width SD 40.7 fl (35.1-43.9); Red Blood Count 4.55 M/mm3 (4.6-6.2); White Blood Count 10.8 K/mm3 (4.4-11.0)
[2021-10-17 06:48] LABS: Phosphorus 3.3 mg/dL (2.5-4.9)
[2021-10-17 06:49] LABS: ALB/GLOB Ratio 0.9 RATIO (0.9-2.4); AST(SGOT) 55 U/L (15-37); Alanine Aminotransfer ALT/SGPT 39 U/L (16-61); Albumin, Serum 2.7 g/dL (3.2-5.0); Alkaline Phosphatase 115 U/L (45-117); Anion Gap 6 (5-15); BUN 14 mg/dL (7-18); BUN/Creat Ratio 23.6 RATIO (10-20); Calcium,Total 8.4 mg/dL (8.5-10.1); Chloride 109 mmol/L (98-107); Creatinine, Serum 0.59 mg/dL (0.70-1.30); EST Glomerular Filtration Rate 140 mL/min (>60); Est Glom Filt Rate - Afr Amer 169 mL/min (>60); Glucose 124 mg/dL (74-106); Potassium 3.5 mmol/L (3.5-5.1); Protein, Total 5.7 g/dL (6.4-8.2); Sodium Level 140 mmol/L (136-145)
[2021-10-17 08:35] VITALS: BP 122/44; PULSE 63; RESP 18; TEMP 36.7; O2SAT 94
--- NOTE | 2021-10-17 09:13 | PCM.TXEXTCAR ---
Diet Diet Order/Speech Therapy: 10/16/21 10:18 Diet: Regular - General Food consistency:: Mechanical (Minced/Moist) Liquid Consistency:: Regular/Thin Is pt able to select menu?: Yes Diet Comments: TOTAL FEED, sips by cup only Routine Orders/Code Status Routine Lab Work: CBC (within 3 days) and - (cmp within 3 days) Code Status: DNRCC Wound(s) left liao: Wound Type: Abrasion RLE: Wound Type: Abrasion Therapies Weight Bearing: Weight bearing as tolerated Physical Therapy: Eval and Treat Occupational Therapy: Eval and Treat Speech Therapy: Eval and Treat Problem/Diagnosis (1) Hypernatremia: Status: Acute Code(s): E87.0 - Hyperosmolality and hypernatremia (2) Infection of mouth: Status: Acute Code(s): K12.2 - Cellulitis and abscess of mouth (3) Dementia: Status: Acute Code(s): F03.90 - Unspecified dementia without behavioral disturbance Allergies/Procedures Done in Hospital Allergies bee venom protein (honey bee) Allergy (Verified 10/14/21 17:19) Laryngospasms morphine Allergy (Verified 10/14/21 17:19) Other abd gets bloated Procedures: None Type of Care/Length of Stay Estimated LOS: More Than 30 Days Type of Care Needed: Intermediate Rehab Potential: Fair Prognosis: Fair Additional Orders/Day of Discharge Day of Discharge: 10/17/21 Dietary and Speech Recommendations Dietitian Recommendations/Changes: ADAT to Regular diet with soft/easy to chew meats when medically able. 120mL Ensure Enlive 4x daily when diet advances. Discharge Plan Admission Admit Date/Time: 10/14/21 15:54 Primary Reason for Your Visit: Acute hypernatremia/oral ulcers Attending Provider: Keri Hull Primary Care Provider: Jassi Rodriguez Consulting Providers: Aldo Gonzales ; Abilio Mcgee Instructions Additional Instructions / Restrictions: Patient's Cardizem was held during this hospital stay; blood pressures remained stable. Consider resuming if blood pressure is elevated or heart rate is uncontrolled Continue to encourage free water Discharge Orders/Prescriptions Prescriptions: New acetaminophen 650 mg Suppository 650 mg MT Q8 PRN (Reason: Pain Score 1-10) Qty: 0 0RF lidocaine HCl [Lidocaine Viscous] 2 % Solution 5 ml PO 4X/DAY PRN (Reason: stomatitis) Qty: 0 0RF Biotene Dry Mouth Oral Rinse Mouthwash 15 ml mucous membrane Q1H PRN PRN (Reason: Dry Mouth) Qty: 0 0RF amoxicillin-pot clavulanate [Augmentin] 500-125 mg tablet 1 tab PO BID 5 Days Qty: 10 0RF Continued sertraline 100 mg tablet 100 mg PO DAILY aspirin 81 mg Tablet,Delayed Release (Dr/Ec) 81 mg PO DAILY@0800 docusate sodium [Colace] 100 mg Capsule 200 mg PO BID mirtazapine 15 mg tablet 15 mg PO QHS multivitamin with minerals Tablet 1 tab PO DAILY ranolazine 500 mg tablet extended release 12 hr 500 mg PO BID magnesium oxide 400 mg magnesium Tablet 800 mg PO DAILY Discontinued diltiazem HCl 180 mg capsule,extended release 24hr 180 mg PO DAILY Referrals / Follow Up: Jassi Rodriguez MD [Primary Care Provider] - Aldo Gonzales DDS [STAFF PHYSICIAN] - Within 1 Week Disposition Disposition (needs filled in before D/C Order can be placed): Detention Facility
--- NOTE | 2021-10-17 09:27 | DS.PCM_ITS ---
Providers Date of Admission: 10/14/21 Date of Discharge: 10/17/21 Primary Care Physician: Dr. Jassi Rodriguez MD Consultations 10/14/21 17:11 Consult: Oral Surgeon Routine Consulting Provider: Aldo Gonzales Reason for Consult: Mandibular swelling, mndibular ulcer EMERGENT Consult: No Notified: Yes Date Notified: 10/14/21 Time Notified: 17:33 Method of Notification: Verbal 10/15/21 07:18 Consult: Nephrology Routine Consulting Provider: Abilio Mcgee Reason for Consult: Hypernatremia EMERGENT Consult: No Notified: Yes Date Notified: 10/15/21 Time Notified: 07:18 Method of Notification: Answering Service Reason For Visit: MANDIBULAR SWELLING Diagnosis Discharge Diagnosis (1) Hypernatremia: Status: Resolved Code(s): E87.0 - Hyperosmolality and hypernatremia (2) Infection of mouth: Status: Acute Code(s): K12.2 - Cellulitis and abscess of mouth (3) Dementia: Status: Acute Code(s): F03.90 - Unspecified dementia without behavioral disturbance (4) Severe protein-calorie malnutrition: Status: Acute Code(s): E43 - Unspecified severe protein-calorie malnutrition Medications at Discharge Home Medications aspirin 81 mg tablet,delayed release 81 mg PO DAILY@0800 10/14/21 docusate sodium 100 mg capsule (Colace) 200 mg PO BID CONSTIPATION 10/14/21 magnesium oxide 800 mg PO DAILY 10/14/21 mirtazapine 15 mg tablet 15 mg PO QHS APPETITE 10/14/21 multivitamin with minerals 1 tab PO DAILY SUPPLEMENT 10/14/21 ranolazine 500 mg tablet,extended release,12 hr 500 mg PO BID ANGINA 10/14/21 sertraline 100 mg tablet 100 mg PO DAILY DEPRESSION 10/14/21 acetaminophen 650 mg rectal suppository [address] Q8 PRN Pain Score 1-10 #0 ea 10/17/21 amoxicillin 500 mg-potassium clavulanate 125 mg tablet (Augmentin) 1 tab PO BID 5 days #10 tabs 10/17/21 lidocaine HCl 2 % mucosal solution (Lidocaine Viscous) 5 ml PO 4X/DAY PRN stomatitis #0 mL 10/17/21 saliva substitute combo no.9 (Biotene Dry Mouth Oral Rinse) 15 ml mucous membrane Q1H PRN PRN Dry Mouth #0 mL 10/17/21 Hospital Course Operations None Procedures None Summary of Care Provided Minutes Spent on Discharge: 40 Hospital Course: 81 y/o male with PMHx of Dementia, resident in a dementia unit/DE who was in with progressive confusion and poor p.o. intake going on for about 2 weeks, worsening confusion ongoing for couple days prior to admission. Patient was noted to have a right lip and jaw swelling. He was found to be combative in the ED. His admitting vitals were stable. His sodium was 158, potassium 3.7, creatinine 1.16. Patient appears to have right lip and jaw swelling. He was resistant to have his mouth examined He was admitted to the [facility] floor, managed on Haldol as needed, IV fluids, frequent BMP checks. His BMP initially peaked at 160 and slowly started to come down. Patient received Roxanol, BMS, Biotene for comfort. Reexamination found patient to have greenish/yellowish exudative lesions all about the mouth. This improved the next day with oral mouth care. Neurosurgery was consulted from the ED, recommended IV prednisone. Patient's oral exam appears to have improved prior to prednisone. Patient was able to tolerate oral intake. Seen by speech therapy and put on a mechanical soft/minced diet. His sodium was normal at the time of being discharged. He was also seen by dietitian in the hospital for severe protein calorie malnutrition. He was discharged back to the residential and will be followed up closely for BMP. He was to be allowed to taking free water. He was discharged on 5 days of Augmentin. He will follow-up with oral surgery in the outpatient. Physical Exam Narrative Physical exam: General: Alert, remains confused, not pale, appears very frail, cachectic HEENT: Atraumatic Oral: Moist oral mucosa, pink, poor dentition Neck: Supple Lungs: Diminished to auscultation Cardiovascular: HS I+II, regular, no murmurs Abdomen: Bowel Sounds Present, Soft, Non Tender Extremities: No edema Skin: No rashes, No breakdown Neurological: Grossly intact Psych/Mental Status: Appropriate Medical Records Data Medical Nutrition Assessment Dietitian: Malnutrition Criteria Met Start: 10/15/21 10:23 Freq: Status: Active Protocol: Document 10/15/21 10:24 LO (Rec: 10/15/21 10:24 LO [id number]) Nutrition Malnutrition Evidence of Malnutrition Exists Yes Malnutrition (severe): Social/Behavioral/ Environmental Evidenced By Suboptimal Energy Intake ( Severe),Weight Loss (Severe), Physical Changes (Severe) Clinical Problem Chronic Disease or Condition Related Malnutrition Etiology (severe) related to dementia Signs/Symptoms as evidenced by PO intake <75% of estimated needs for 9 months, 33% weight loss in 9 months, and severe orbital fat loss Status Active Problem Recommendation Dietitian Recommendations/Changes ADAT to Regular diet with soft /easy to chew meats when medically able. 120mL Ensure Enlive 4x daily when diet advances. Weight / BMI Weight Weight: 54 kg Body Mass Index (BMI) 17.8 ABG / Lab / Microbiology Data Result Diagrams: 10/17/21 05:40 10/17/21 05:40 Laboratory: Laboratory Results - last 24 hr 10/17/21 05:40: WBC 10.8, RBC 4.55 L, Hgb 13.3, Hct 38.5 L, MCV 84.6, MCH 29.2, MCHC 34.5 D, RDW Std Deviation 40.7, RDW Coeff of Jeet 13.2, Plt Count 155, MPV 11.3, Immature Gran % (Auto) 0.400, Neut % (Auto) 76.3 H, Lymph % (Auto) 14.9 L, [place] % (Auto) 7.9, Eos % (Auto) 0.3, Baso % (Auto) 0.2, Absolute Neuts (auto) 8.2 H, Absolute Lymphs (auto) 1.60, Nucleated RBC % 0 10/17/21 05:40: Sodium 140, Potassium 3.5, Chloride 109 H, Carbon Dioxide 25.0, Anion Gap 6, BUN 14, Creatinine 0.59 L, Estim Creat Clear Calc 45.00, Est GFR (MDRD) Af Amer 169, Est GFR (MDRD) Non-Af 140, BUN/Creatinine Ratio 23.6 H, Glucose 124 H, Calcium 8.4 L, Total Bilirubin 0.50, AST 55 H, ALT 39, Alkaline Phosphatase 115, Total Protein 5.7 L, Albumin 2.7 L, Globulin 3.0, Albumin/ Globulin Ratio 0.9 10/17/21 05:40: Phosphorus 3.3 Microbiology: Microbiology 10/14/21 15:18 Urine, Clean Catch Urine Culture - Final Culture exhibits no growth. D/C Instructions Discharge Diet: No restrictions and - (mechanically soft/minced diet) Meaningful Use Info Meaningful Use Diagnoses (Choose all that apply): None applicable Discharge Plan Admission Admit Date/Time: 10/14/21 15:54 Primary Reason for Your Visit: Acute hypernatremia/oral ulcers Attending Provider: Keri Hull Primary Care Provider: Jassi Rodriguez Consulting Providers: Aldo Gonzales ; Abilio Mcgee Instructions Additional Instructions / Restrictions: Patient's Cardizem was held during this hospital stay; blood pressures remained stable. Consider resuming if blood pressure is elevated or heart rate is uncontrolled Continue to encourage free water Discharge Orders/Prescriptions Prescriptions: New acetaminophen 650 mg Suppository [address] Q8 PRN (Reason: Pain Score 1-10) Qty: 0 0RF lidocaine HCl [Lidocaine Viscous] 2 % Solution 5 ml PO 4X/DAY PRN (Reason: stomatitis) Qty: 0 0RF Biotene Dry Mouth Oral Rinse Mouthwash 15 ml mucous membrane Q1H PRN PRN (Reason: Dry Mouth) Qty: 0 0RF amoxicillin-pot clavulanate [Augmentin] 500-125 mg tablet 1 tab PO BID 5 Days Qty: 10 0RF Continued sertraline 100 mg tablet 100 mg PO DAILY aspirin 81 mg Tablet,Delayed Release (Dr/Ec) 81 mg PO DAILY@0800 docusate sodium [Colace] 100 mg Capsule 200 mg PO BID mirtazapine 15 mg tablet 15 mg PO QHS multivitamin with minerals Tablet 1 tab PO DAILY ranolazine 500 mg tablet extended release 12 hr 500 mg PO BID magnesium oxide 400 mg magnesium Tablet 800 mg PO DAILY Discontinued diltiazem HCl 180 mg capsule,extended release 24hr 180 mg PO DAILY Referrals / Follow Up: Jassi Rodriguez MD [Primary Care Provider] - Aldo Gonzales DDS [STAFF PHYSICIAN] - Within 1 Week Disposition Disposition (needs filled in before D/C Order can be placed): [facility] Charges/Coding Visit Charges Inpatient E&M: [id number] Disch Hosp
--- NOTE | 2021-10-17 11:12 | NURSING ---
Report called to Lili[facility] at this time.
== END 2021-10-17 11:25 | disposition skilled nursing facility (03) | DRG 158 ==
LOC: ED 15:48 → MS3 16:21
PROVIDERS: Admitting Provider Internal Medicine; Emergency Provider Emergency Medicine; PCP Family Medicine; Visit Provider Internal Medicine
DX: K12.1 Other forms of stomatitis (principal); F03.91 Unspecified dementia, unspecified severity, with behavioral disturbance; E87.0 Hyperosmolality and hypernatremia; Z68.1 Body mass index [BMI] 19.9 or less, adult; J43.9 Emphysema, unspecified; E86.0 Dehydration; K12.2 Cellulitis and abscess of mouth; E78.00 Pure hypercholesterolemia, unspecified; I25.10 Atherosclerotic heart disease of native coronary artery without angina pectoris; E87.6 Hypokalemia; I10 Essential (primary) hypertension; K58.9 Irritable bowel syndrome, unspecified; K12.30 Oral mucositis (ulcerative), unspecified; E86.1 Hypovolemia; Z66 Do not resuscitate; Z20.822 Contact with and (suspected) exposure to COVID-19; Z79.82 Long term (current) use of aspirin; Z79.899 Other long term (current) drug therapy
CPT/HCPCS: 36415; 70450; 70486; 71045; 80048; 80053; 80076; 81001; 83735; 84100; 85025; 87086; 87426; 92610; 93005; 97802; 99285; J7030; J7050; A4216; J0295